=== PATIENT | female | born 1975 | race Caucasian/White ===

== ENCOUNTER 2020-01-25 10:19 | Day surgery (SDC) | payer BC, OTHER ==
--- NOTE | 2020-01-16 11:05 | HP ---
Admitting History and Physical - Primary Care Physician PCP: Wagner Castano - Admission Chief Complaint: Left breast calcifications History of Present Illness: 44 year old premenapausal nulliparous woman presents with 5mm subareolar calcifications on screening mammogram Birad 4 US showed benign cyst. stereotactic core biopsy 01/03/2020 benign breast tissue and no calcifications. History Source: Patient Limitations to Obtaining History: No Limitations - Past Medical History Cardiovascular: Yes: HTN Reproductive: Yes: Other (uterine polyps) Additional Past Medical History: COVID + 10/2019 recently tested neg and has AB - Past Surgical History Additional Past Surgical History: uterine polyps 2019 sleeve 2012 - Smoking History Smoking history: Never smoked Have you smoked in the past 12 months: No - Alcohol/Substance Use Hx Alcohol Use: Yes (social) Home Medications - Allergies Allergies/Adverse Reactions: Allergies Allergy/AdvReac Type Severity Reaction Status Date / Time apple Allergy Verified 01/16/20 11:07 Family Medical History Family Hx Cancer: Grandmother (maternal) (pancreatic ca 86), Grandmother (paternal) (uterine ca 40) Other Family History: mat aunt pancreatic ca CRC lung ca45 Physical Examination Constitutional: Yes: No Distress Breast(s): Yes: Other (no palpable masses or adenopathy bilaterally post bx changes left breast) Problem List - Problems (1) Calcification of left breast Problems reviewed: Yes Code(s): R92.1 - MAMMOGRAPHIC CALCIFCN FOUND ON DIAGNOSTIC IMAGING OF BREAST Assessment/Plan breast wide excision with needle localization
[2020-01-16 14:15] VITALS: BMI 32.2
[2020-01-25] MEDS ORDERED: LIDOCAINE HCL 1%, 10 MG/ML (20ML VIAL) ONE (11:48)
[2020-01-25] MEDS ORDERED: BUPIVACAINE HCL/PF 0.25% (2.5MG/ML) 10 ML VIAL ONE (11:48)
[2020-01-25] MEDS ORDERED: KETOROLAC TROMETHAMINE 30 MG/1 ML VIAL IVPUSH PRN (12:24)
[2020-01-25] MEDS ORDERED: ONDANSETRON 4 MG/2 ML VIAL IVPUSH PRN ×2 (12:24→14:04)
[2020-01-25] MEDS ORDERED: DEXTROSE 5%-0.45% SALINE 1,000 ML IV SCH (12:30)
[2020-01-25] MEDS ORDERED: MIDAZOLAM HCL 2 MG/2 ML SINGLE DOSE VIAL ONE (12:58)
[2020-01-25] MEDS ORDERED: ACETAMINOPHEN INJECTION 100 ML IVPB ONE (12:58)
[2020-01-25] MEDS ORDERED: PROPOFOL 20 ML ONE ×2 (13:07)
[2020-01-25] MEDS ORDERED: KETOROLAC TROMETHAMINE 30 MG/1 ML VIAL ONE (13:10)
[2020-01-25] MEDS ORDERED: DEXAMETHASONE SOD PHOSPHATE 4 MG/1 ML VIAL ONE (13:13)
[2020-01-25] MEDS ORDERED: ONDANSETRON 4 MG/2 ML VIAL ONE (13:13)
[2020-01-25] MEDS ORDERED: SODIUM CHLORIDE 0.9% P/F 10 ML VIAL IJ ONE (13:15)
[2020-01-25] MEDS ORDERED: BUPIVACAINE HCL/PF 0.25% (2.5MG/ML) 10 ML VIAL IJ ONE (13:40)
[2020-01-25] MEDS ORDERED: LIDOCAINE HCL 1%, 10 MG/ML (20ML VIAL) ID ONE (13:40)
[2020-01-25] MEDS ORDERED: oxyCODONE HCL 5 MG TABLET PO PRN ×2 (14:04)
[2020-01-25] MEDS ORDERED: PROMETHAZINE HCL 25 MG/1 ML VIAL IVPUSH PRN (14:04)
[2020-01-25] MEDS ORDERED: LACTATED RINGERS SOLUTION 1,000 ML IV SCH (14:15)
[2020-01-25 15:09] VITALS: TEMP 97.8
[2020-01-25 16:42] VITALS: BP 123/71; PULSE 55
--- NOTE | 2020-01-27 13:02 | OP ---
DATE OF OPERATION: 01/25/2020 PREOPERATIVE DIAGNOSIS: Left breast calcifications. POSTOPERATIVE DIAGNOSIS: Left breast calcifications. PROCEDURE: Left breast localized excisional biopsy. ANESTHESIA: IV sedation with local. ATTENDING SURGEON: Arti Castano MD [employer] ASSOCIATE: MITA Genao ESTIMATED BLOOD LOSS: Minimal. COMPLICATIONS: None. OPERATIVE NOTE: Patient was made aware of the risks and benefits of the procedure and consented. Preoperatively patient went to Radiology where Magseed was placed into the index lesion. She was then brought to the operating room and was placed in the supine position. After IV sedation was administered, the operative site was prepped and draped in the usual sterile fashion. The area was localized with the Magseed probe and a periareolar incision was demarcated. Local anesthesia was administered with a 1:1 ratio of 1% lidocaine and 0.5% bupivacaine. A periareolar incision was then made using sharp dissection. The area of concern was further localized with the Magseed probe and widely excised, then submitted with short suture superior, long suture lateral. Incidentally the Magseed probe was identified during the procedure. Postprocedure specimen radiograph confirmed the presence of the index lesion, not only the Magseed, the calcifications, but also the prior clip. This was then submitted for permanent sectioning. The wound was then copiously irrigated with normal saline. Hemostasis maintained by electrocautery. The wound was then closed with interrupted subdermal 3-0 Vicryl followed by running subcuticular 4-0 Monocryl. Steri-Strips, sterile dressing and a compression bra were then applied and the patient, having tolerated the procedure well, was transferred to the recovery room in excellent condition. ARTI CASTANO M.D. [id number]
--- NOTE | 2020-01-29 12:33 | PATH ---
Surgical Pathology Report Patient Name: [facility]. Rec. #: [id number] /Age/Gender: 1975 (Age: 44) / F Account: [id number] Location: [facility] AMBULATORY Taken: 01/25/2020 Received: 01/25/2020 Reported: 01/29/2020 Physicians: Wagner Castano M.D. Specimen(s) Received LEFT BREAST WIDE EXCISION Clinical History Left breast wide excision Final Diagnosis BREAST, LEFT, WIDE EXCISION: BENIGN BREAST TISSUE SHOWING COLUMNAR CELL CHANGE, FOCAL CYSTIC APOCRINE METAPLASIA AND MILD USUAL DUCTAL HYPERPLASIA (UDH). CALCIFICATIONS ARE PRESENT IN ASSOCIATION WITH BLOOD VESSEL (MEDIAL) WALL. PRIOR BIOPSY SITE CHANGES ARE PRESENT. Electronically Signed Yessica Wayne M.D. Gross Description Received in formalin, labeled "left breast wide excision," is a 2.2 x 1.8 x 0.6 cm. cordova-yellow, irregular, portion of fibroadipose tissue. There is no needle localization wire present. There is a short suture marking the superior aspect and a long suture marking the lateral aspect, per the surgeon. There is no skin present. The specimen is inked as follows: superior and lateral blue; inferior green; medial yellow; anterior red; deep black. The specimen is serially sectioned from superior to inferior. Sectioning reveals focally firm fibrous tissue. No definitive mass is identified. The specimen is entirely and sequentially submitted in 4 cassettes with the superior margin in cassette 1 and the inferior margin in cassette 4. Time to formalin fixation: 23 minutes Total formalin fixation time: Approximately 76 hours. /01/28/2020 [facility]/01/28/2020
== END 2020-01-25 16:30 | disposition home or self-care (01) ==
LOC: FASU 10:19
PROVIDERS: ATTEND Surgery Surgical Oncology
PROC: 0HBU0ZX Excision of Left Breast, Open Approach, Diagnostic (ICD-10-PCS; principal; 2020-01-25 13:00)
DX: N60.12 Diffuse cystic mastopathy of left breast (principal); N60.82 Other benign mammary dysplasias of left breast; N64.89 Other specified disorders of breast; R92.1 Mammographic calcification found on diagnostic imaging of breast
CPT/HCPCS: 19281; 76098-TC-FY; 88307-TC; 94760; J0131